=== PATIENT | female | born 1950 | race Caucasian/White ===

== ENCOUNTER 2017-03-28 14:43 | Emergency (ER) | payer MEDICARE, BC, SELFPAY | END 2017-03-28 17:21 | disposition home or self-care (01) | PROVIDERS: Emergency Provider Nurse Practitioner Family; Visit Provider Nurse Practitioner Family | DX: L50.0 Allergic urticaria (principal); M35.3 Polymyalgia rheumatica; I10 Essential (primary) hypertension; Z88.0 Allergy status to penicillin; Z88.2 Allergy status to sulfonamides | CPT/HCPCS: G0463; 96372; 99202 ==